=== PATIENT | male | born 1945 | race Hispanic/Latino ===

== ENCOUNTER 2020-12-21 08:59 | Observation (INO) | payer OTHER ==
[~2020-12-21] VITALS: Ht 180.3 cm; Wt 73.9 kg
[~2020-12-21 08:59] MED LIST: FINA5TAB41 PO; SIMV5TAB58 PO
[2020-12-21 09:51] LABS: BASOPHILS % (AUTO) 1.7 % (0.0-5.0); EOSINOPHILS % (AUTO) 2.8 % (0.0-8.0); HEMATOCRIT 41.5 % (42-54); MEAN CORPUSCULAR HEMOGLOBIN 28.2 pg (27.0-33.0); MEAN CORPUSCULAR HGB CONC 32.3 g/dL (32.0-36.0); MEAN CORPUSCULAR VOLUME 87.2 fL (79-99); MONOCYTES % (AUTO) 8.1 % (3.0-13.0); NEUTROPHILS % (AUTO) 56.2 % (40.0-77.0); PLATELET COUNT (AUTO) 255 K/uL (130-400); RED BLOOD CELL COUNT(AUTO) 4.76 MIL/uL (4.50-6.20); RED CELL DISTRIBUTION WIDTH 14.3 % (11.0-15.5); WHITE BLOOD COUNT (AUTO) 4.2 K/uL (4.8-10.8)
[2020-12-21 09:59] LABS: APPEARANCE,URINE TURBID (CLEAR); BILIRUBIN,URINE MODERATE (NEGATIVE); COLOR,URINE RED (YELLOW); GLUCOSE, URINE (UA) 100 mg/dL (NEGATIVE); KETONES,URINE 5 mg/dL (NEGATIVE); LEUKOCYTE ESTERASE ,URINE TRACE (NEGATIVE); NITRATE,URINE POSITIVE (NEGATIVE); OCCULT BLOOD,URINE LARGE (NEGATIVE); PH,URINE 6.5 (5.0-8.0); PROTEIN,URINE >=300 mg/dL (NEGATIVE)
[2020-12-21 10:03] LABS: RBC,URINE TNTC /HPF (0-1)
[2020-12-21 10:04] LABS: BACTERIA,URINE Few /HPF (None Seen); SQUAMOUS EPITHELIAL CELL,UR Rare /HPF (0-2)
[2020-12-21 10:06] LABS: CREATININE 1.5 mg/dL (0.5-1.5)
[2020-12-21 10:09] LABS: INR 0.96 (0.85-1.15); PROTHROMBIN TIME 10.5 SEC (9.6-11.6)
[2020-12-21 10:10] LABS: PARTIAL THROMBOPLASTIN TIME 26.5 SEC (26.3-35.5)
[2020-12-21 10:11] LABS: ALBUMIN 3.5 g/dL (3.5-5.0); BILIRUBIN,TOTAL 0.3 mg/dL (0.2-1.0)
[2020-12-21] MEDS: INSULIN HUMULIN R 100 UNIT/ML 3ML SQ SCH ×3 (11:30→21:00)
[2020-12-21] MEDS ORDERED: POTASSIUM CHLORIDE 20 MEQ ERTAB PO PRN (11:30)
[2020-12-21] MEDS ORDERED: ONDANSETRON HCL 4 MG/2 ML VIAL IVP PRN (11:30)
[2020-12-21] MEDS: PANTOPRAZOLE SODIUM 40 MG TABLET.DR PO SCH (11:30)
[2020-12-21] MEDS ORDERED: DEXTROSE 50%-WATER 50 ML DISP.SYRIN IV PRN (11:30)
[2020-12-21] MEDS ORDERED: ACETAMINOPHEN 325 MG TAB PO PRN (11:30)
[2020-12-21] MEDS ORDERED: POTASSIUM CHLORIDE 10% ELIXIR 20 MEQ/15 ML UDCUP PO PRN (11:30)
[2020-12-21] MEDS: CEFTRIAXONE SODIUM 1 GM IV SCH (11:30)
[2020-12-21] MEDS ORDERED: POTASSIUM CHLORIDE 20MEQ/100ML 100 ML IV PRN ×2 (11:30)
[2020-12-21] MEDS ORDERED: MAGNESIUM 2GM PREMIX 50ML 50 ML IV PRN (11:30)
[2020-12-21] MEDS ORDERED: LIDOCAINE HCL-MPF 1% 2ML VIAL IV PRN ×2 (11:30)
[2020-12-21] MEDS ORDERED: GLUCAGON 1MG KIT 1 MG ML IM PRN (11:30)
[2020-12-21] MEDS ORDERED: CEFTRIAXONE SODIUM 1 GM ONE (17:37)
[2020-12-21] MEDS ORDERED: PANTOPRAZOLE 40 MG/VIAL ONE (17:38)
[2020-12-21] MEDS: LACTULOSE 20 GM/30 ML UDCUP PO SCH (21:00)
[2020-12-21] MEDS: HYDROCORTISONE 25 MG SUPPOSITORY PR SCH (21:00)
[2020-12-21] MEDS ORDERED: HYDROCORTISONE 25 MG SUPPOSITORY PR ONE (21:36)
[2020-12-21] MEDS ORDERED: LACTULOSE 20 GM/30 ML UDCUP ONE (21:36)
[2020-12-21 22:00] VITALS: BP 127/63
[2020-12-22 04:11] VITALS: BP 121/64
[2020-12-22 05:47] LABS: HEMATOCRIT 37.7 % (42-54); MEAN CORPUSCULAR HEMOGLOBIN 28.6 pg (27.0-33.0); MEAN CORPUSCULAR HGB CONC 33.4 g/dL (32.0-36.0); MEAN CORPUSCULAR VOLUME 85.5 fL (79-99); RED BLOOD CELL COUNT(AUTO) 4.41 MIL/uL (4.50-6.20); RED CELL DISTRIBUTION WIDTH 14.3 % (11.0-15.5)
[2020-12-22] MEDS: INSULIN HUMULIN R 100 UNIT/ML 3ML SQ SCH ×4 (06:13→20:46)
[2020-12-22 06:19] LABS: CREATININE 1.2 mg/dL (0.5-1.5); POTASSIUM 4.4 mmol/L (3.5-5.1)
[2020-12-22 08:00] VITALS: BP 129/68
[2020-12-22] MEDS: HYDROCORTISONE 25 MG SUPPOSITORY PR SCH ×2 (09:07→21:18)
[2020-12-22] MEDS: PANTOPRAZOLE SODIUM 40 MG TABLET.DR PO SCH (09:07)
[2020-12-22] MEDS: LACTULOSE 20 GM/30 ML UDCUP PO SCH ×2 (09:07→21:18)
[2020-12-22] MEDS: CEFTRIAXONE SODIUM 1 GM IV SCH (09:07)
[2020-12-22 12:00] VITALS: BP 98/63
[2020-12-22 16:00] VITALS: BP 106/71
[2020-12-22 19:59] VITALS: BP 110/63
[2020-12-22 23:53] VITALS: BP 116/70
[2020-12-23 03:59] VITALS: BP 116/66
[2020-12-23] MEDS: INSULIN HUMULIN R 100 UNIT/ML 3ML SQ SCH (06:30)
[2020-12-23 07:16] VITALS: BP 126/87
[2020-12-23] MEDS ORDERED: SULF1TAB42 PO (09:10)
[2020-12-23] MEDS ORDERED: LACT10SO9 PO (09:10)
[2020-12-23] MEDS: LACTULOSE 20 GM/30 ML UDCUP PO SCH (09:14)
[2020-12-23] MEDS: PANTOPRAZOLE SODIUM 40 MG TABLET.DR PO SCH (09:14)
[2020-12-23] MEDS: CEFTRIAXONE SODIUM 1 GM IV SCH (09:14)
[2020-12-23] MEDS: HYDROCORTISONE 25 MG SUPPOSITORY PR SCH (09:14)
[2020-12-23 11:04] VITALS: BP 105/60
== END 2020-12-23 15:30 | disposition home or self-care (01) ==
LOC: EDH 08:59 → EDHIP 11:18 → 3BH 21:10
PROVIDERS: ADMIT Internal Medicine; ATTEND Internal Medicine
DX: R31.0 Gross hematuria (principal); N39.0 Urinary tract infection, site not specified; N40.0 Benign prostatic hyperplasia without lower urinary tract symptoms; K59.00 Constipation, unspecified; K64.8 Other hemorrhoids; E78.00 Pure hypercholesterolemia, unspecified; N18.30 Chronic kidney disease, stage 3 unspecified; E78.5 Hyperlipidemia, unspecified; J30.1 Allergic rhinitis due to pollen; J30.89 Other allergic rhinitis; Z79.899 Other long term (current) drug therapy; Z91.048 Other nonmedicinal substance allergy status
CPT/HCPCS: 36415 ×2; 74176; 80048; 80053; 81001; 82948 ×8; 85025; 85027; 85610; 85730; 86850; 86900; 86901; 87040 ×2; 87088; 96374; 96376; 99284; A4346; C9113; G0378 ×52; J0696 ×3; A4355